=== PATIENT | female | born 1995 | race Caucasian/White ===

== ENCOUNTER 2020-03-31 16:31 | Emergency (ER) | payer OTHER, SELFPAY ==
[2020-03-31 16:39] VITALS: BP 149/79; PULSE 89; RESP 20; TEMP 36.8; O2SAT 100
--- NOTE | 2020-03-31 17:28 | ED.GENADULT ---
HPI - General Adult General Chief complaint: Dental/Oral Stated complaint: tooth pain/swelling Time Seen by Provider: 03/31/20 17:28 Source: patient and RN notes reviewed Mode of arrival: ambulatory Limitations: no limitations History of Present Illness HPI narrative: 25-year-old female presents with complaints of dental pain for the past 3 days. No treatment. Kala says she has had dental problems for over 3 months in which one tooth chipped 2 months ago and LT lower molar is impacted. Her dental appointments has been canceled several times due to COVID-19 per Kala. Denies any drainage. No fever. No jaw swelling. No neck swelling. No limitation with speaking or swallowing. Has history of dental caries. No dental trauma. No oral lesions. Exacerbating factors consist of chewing on LT side, eating and drinking hot and cold items. Relieving factors not eating on LT side and avoiding hot and cold items. No dentures or bridges. Tolerating liquids well. The patient reports she have not been diagnosed with COVID-19. The patient reports she is not waiting for the results of a COVID-19 lab test. The patient reports she do not have fever, chills, weakness, fatigue, myalgia, or facial swelling. The patient reports she do not have a new or worsening cough or shortness of breath. Denies chest pain. The patient reports she do not have any rhinorrhea, congestion, sore throat, nausea, vomiting, abdominal pain, and diarrhea. Tolerating po intake well. Denies recent traveling. Denies concerns for COVID-19 or exposures been home with limited outdoor exposure except for essential household needs, work, and return home. At this time, patient is not suspected of having COVID-19. Some parts of this dictation were generated by voice recognition software and may contain typographical and/or grammatical inaccuracies. Related Data Allergies Allergy/AdvReac Type Severity Reaction Status Date / Time No Known Allergies Allergy Verified 03/31/20 16:49 Review of Systems Review of Systems: Narrative: CONSTITUTIONAL: Denies fever, chills, sweats. EYES: Denies visual changes, redness, discharge. ENT: Denies rhinorrhea, congestion, sore throat, otalgia. Complains of LT diffused upper and lower dental pain. CARDIOVASCULAR: Denies chest pain, palpitations, edema. RESPIRATORY: Denies dyspnea, wheezing, cough. GASTROINTESTINAL: Denies abdominal pain, nausea, vomiting, diarrhea. GENITOURINARY: Denies dysuria, hematuria, abnormal discharge. SKIN: Denies rash or itching. MUSCULOSKELETAL: Denies acute back pain, joint pain, or myalgia. NEUROLOGIC: Denies numbness or focal weakness. PSYCHIATRIC: Denies anxiety or depression. All systems reviewed & are unremarkable except as noted in HPI and below. [facility] Past Medical History Medical History (Updated 04/01/20 @ 00:00 by Socorro Huff) No significant past medical history Non-involution of uterus Surgical History Surgical History (Updated 03/31/20 @ 19:14 by JANAK Mckinnon) No significant past surgical history Family History Family History (Updated 03/31/20 @ 19:15 by JANAK Mckinnon) Father Hypertension Bipolar disorder Mother Alive and well Social History Social History (Updated 03/31/20 @ 19:16 by JANAK Mckinnon) Smoking packs per day: 0.45 Smoking cigarettes per day: 9.0 Years smoked: 5 Smoking pack-years: 2.25 Smoking status: Current every day smoker Tobacco type: cigarettes Second hand tobacco smoke exposure: Yes Alcohol intake: current Substance use: never Living arrangements: with family Occupation/Education: occupation Gender identity (if verbalized by the patient): Female Sexual Orientation (if Verbalized by the Patient): Straight or Heterosexual Comments At time of signature, agree with nurse past medical, surgical, social, and family history. There is no relevant family history pertinent to the presenting
== END 2020-03-31 17:45 | disposition home or self-care (01) ==
PROVIDERS: Emergency Provider Nurse Practitioner Family
DX: K02.9 Dental caries, unspecified (principal); K04.7 Periapical abscess without sinus; F17.210 Nicotine dependence, cigarettes, uncomplicated
CPT/HCPCS: 99213; G0463

== ENCOUNTER 2021-06-16 13:55 | Emergency (ER) | payer OTHER, SELFPAY ==
[2021-06-16 14:01] VITALS: BP 152/86; PULSE 96; RESP 20; TEMP 36.8; O2SAT 100
--- NOTE | 2021-06-16 14:56 | ED.URI ---
HPI - URI/Sore Throat General Chief Complaint: Upper Respiratory Infection Stated Complaint: Cold Symptoms Time Seen by Provider: 06/16/21 14:38 Source: patient and RN notes reviewed Mode of arrival: ambulatory Limitations: no limitations History of Present Illness HPI Narrative: Patient presents today with a 2-day history of sore throat that has mostly resolved, occasional cough, and nasal congestion and pressure. She reports a fever of 100 yesterday and one episode of vomiting each of the last 2 days. Denies shortness of breath, ear pain, any current nausea, diarrhea. Denies loss of taste or smell. She has not been vaccinated against COVID-19. She has been taking ibuprofen with mild relief. MD elicited complaint: sore throat and nasal congestion Related Data Home Medications Medication Instructions Recorded Confirmed No Home Medications 06/16/21 06/16/21 Allergies Allergy/AdvReac Type Severity Reaction Status Date / Time No Known Allergies Allergy Verified 06/16/21 14:16 Review of Systems Review of Systems: CONSTITUTIONAL: Denies body aches, chills, or sweats.+ Fever EYES: Denies visual changes, redness, or discharge. ENT: Denies rhinorrhea, or otalgia.+ Sore throat, congestion CARDIOVASCULAR: Denies chest pain, palpitations, or edema. RESPIRATORY: Denies dyspnea.+ Cough GASTROINTESTINAL: Denies abdominal pain, nausea, or diarrhea.+ Vomiting GENITOURINARY: Denies dysuria or hematuria. SKIN: Denies rash, itching, or wounds. MUSCULOSKELETAL: Denies back pain, joint pain, or myalgia. NEUROLOGIC: Denies headache, numbness, tingling, or weakness. PSYCH: Denies depression or anxiety. [facility] Past Medical History Medical History No significant past medical history Non-involution of uterus Surgical History Surgical History No significant past surgical history Family History Family History Father Hypertension Bipolar disorder Mother Alive and well Social History Social History Smoking packs per day: 0.45 Smoking cigarettes per day: 9.0 Years smoked: 5 Smoking pack-years: 2.25 Smoking status: Current every day smoker Tobacco type: cigarettes Second hand tobacco smoke exposure: Yes Alcohol intake: current Substance use: never Gender identity (if verbalized by the patient): Female Sexual Orientation (if Verbalized by the Patient): Straight or Heterosexual Comments At time of signature, I have reviewed and agree with nursing past medical, surgical, social and family history unless otherwise noted. Please see nursing chart for further information. There is no relevant family history pertinent to the presenting complaint Exam Narrative: GENERAL: Well-appearing, well-nourished, and in no acute distress. HEAD: Normocephalic, atraumatic. EYES: EOMI. No redness or drainage. Conjunctivae normal. ENT: Mucous membranes pink and moist. Nares mildly congested. No rhinorrhea. TMs normal bilaterally. Throat mildly erythematous without edema or exudate. Uvula midline. NECK: Normal AROM. Supple. No lymphadenopathy. CHEST: No respiratory distress. Clear to auscultation. HEART: Regular rate and rhythm. No murmur appreciated. Normal peripheral pulses. EXTREMITIES: Normal range of motion. No edema. SKIN: Warm, dry, no rash. Capillary refill normal. Normal skin turgor. NEURO: No focal deficits. Alert and oriented x3. Gait steady. PSYCH: Normal affect. No signs of depression or anxiety. Course Course Emergency Course: Patient has declined an order for drive-through COVID-19 testing. Vital Signs Vital signs: Vital Signs Temperature 98.3 F 06/16/21 14:01 Pulse Rate 96 06/16/21 14:01 Respiratory Rate 20 06/16/21 14:01 Blood Pressure 15
== END 2021-06-16 15:05 | disposition home or self-care (01) ==
PROVIDERS: Emergency Provider Nurse Practitioner
DX: J06.9 Acute upper respiratory infection, unspecified (principal); F17.210 Nicotine dependence, cigarettes, uncomplicated
CPT/HCPCS: 87081; 87880; 99213; G0463

== ENCOUNTER 2022-10-14 14:19 | Emergency (ER) | payer OTHER, SELFPAY ==
[2022-10-14 14:24] VITALS: BP 145/85; PULSE 88; RESP 20; TEMP 36.8; O2SAT 100
--- NOTE | 2022-10-14 14:29 | ED.EYEPROB ---
HPI - Eye Problem General Chief complaint: Eye Problems Stated complaint: Eye Problem Time Seen by Provider: 10/14/22 14:30 Source: patient and RN notes reviewed Mode of arrival: ambulatory Limitations: no limitations History of Present Illness HPI Narrative: 27-year-old or for female presents with concern for possible stye to her right eye. She reports she had a stye on the lower lid that went away with warm compresses. She reports she now developed a worse stye on her right upper lid. She denies vision changes. Reports yellow drainage from the eye. MD chief complaint: eye redness Related Data Allergies Allergy/AdvReac Type Severity Reaction Status Date / Time No Known Allergies Allergy Verified 10/14/22 14:36 Review of Systems Review of Systems: CONSTITUTIONAL: Denies malaise, chills, sweats, or fever. EYES: Denies visual changes. Reports irritation and swelling to the right upper lid with yellow drainage ENT: Denies rhinorrhea, congestion, sinus pain, otalgia or sore throat. SKIN: Denies rash or itching. NEUROLOGIC: Denies numbness, weakness, or headache. PSYCHIATRIC: Denies anxiety or depression. All systems reviewed & are unremarkable except as noted in HPI and below [facility] Past Medical History Medical History No significant past medical history Non-involution of uterus Surgical History Surgical History No significant past surgical history Family History Family History Father Hypertension Bipolar disorder Mother Alive and well Social History Social History Smoking packs per day: 0.45 Smoking cigarettes per day: 9.0 Years smoked: 5 Smoking pack-years: 2.25 Smoking status: Current every day smoker Tobacco type: cigarettes Second hand tobacco smoke exposure: Yes Alcohol intake: current Substance use: never Living arrangements: with family Occupation/Education: occupation Gender identity (if verbalized by the patient): Female Sexual Orientation (if Verbalized by the Patient): Straight or Heterosexual Comments At time of signature, agree with nursing past medical, surgical, social and family history. There is no relevant family history pertinent to the presenting complaint Exam Narrative: GENERAL: Well-appearing, well-nourished, and in no acute distress. HEAD: Normocephalic, atraumatic. EYES: PERRLA and EOMI. No nystagmus. Bilateral Schooler and conjunctivae clear. Left Upper and lower eyelid unremarkable, no periorbital edema noted. Healing hordeolum noted to the right lower lid, hordeolum noted to the right upper lid with small amount of yellow drainage ENT: Nares clear. Mucous membranes moist. NECK: Supple. CHEST: No respiratory distress. Speaks in full sentences. HEART: Regular rate and rhythm. SKIN: Warm, dry, no visible rash. NEURO: Alert and oriented x3. PSYCH: Normal mood and affect Course Course Emergency Course: Patient is aware of diagnosis, understands and agrees to treatment plan. Anticipatory guidance given. Patient agrees to follow-up as directed and is aware of reasons to seek care at the emergency department. Portions of this record may have been created with voice recognition software Level of Care: Express Care Visit Vital Signs Vital signs: Reviewed. MDM - Eye Problem MDM Narrative Medical decision making narrative: Consideration of the following conditions may be warranted for the presenting problem, they are not final diagnoses: Bacterial conjunctivitis, allergic conjunctivitis, viral conjunctivitis, foreign body, blepharitis, chalazion, hordeolum, corneal abrasion, preseptal cellulitis, orbital cellulitis. No evidence of proptosis, ophthalmoplegia, vision loss, pain with eye movement. Exam findings
== END 2022-10-14 14:40 | disposition home or self-care (01) ==
PROVIDERS: Emergency Provider Nurse Practitioner; PCP Hospitalist
DX: H00.011 Hordeolum externum right upper eyelid (principal); F17.210 Nicotine dependence, cigarettes, uncomplicated
CPT/HCPCS: 99213; G0463

== ENCOUNTER 2024-05-17 11:44 | Emergency (ER) | payer SELFPAY ==
[2024-05-17 11:46] VITALS: BP 157/90; PULSE 82; RESP 15; TEMP 36.8; O2SAT 99
[2024-05-17 13:05] VITALS: BP 139/89; PULSE 73; RESP 20; O2SAT 97
[2024-05-17 13:25] LABS: Basophils Absolute Auto 0.1 K/mm3 (0.0-0.1); Basophils Percent Auto 0.4 % (0.2-1.2); Eosinophils Absolute Auto 0.1 K/mm3 (0-0.3); Eosinophils Percent Auto 0.7 % (0-4.4); Hematocrit 48.2 % (37.0-47.0); Hemoglobin 16.1 g/dL (12.0-15.0); Immature Granulocyte Percent A 1.5 % (0-0.5); Lymphocytes Absolute Auto 3.08 K/mm3 (0.9-3.2); Lymphocytes Percent Auto 22.5 % (18.3-44.2); Mean Corpuscular HGB Conc 33.4 g/dl (32-36); Mean Corpuscular Hemoglobin 31.5 pg (26-34); Mean Corpuscular Volume 94.3 fl (80-100); Mean Platelet Volume 9.4 fl (7.4-10.4); Monocytes Absolute Auto 0.9 K/mm3 (0.1-0.6); Monocytes Percent Auto 6.5 % (2.6-8.5); Neutrophils Absolute Auto 9.4 K/mm3 (1.3-6.7); Neutrophils Percent Auto 68.4 % (45.5-73.1); Platelet Count Result 283 k/mm3 (150-375); Red Blood Count 5.11 M/mm3 (4.2-5.4); Red Cell Distribution Width 14.4 % (11.5-14.5); White Blood Count 13.7 K/mm3 (4.5-10.0)
[2024-05-17 13:36] LABS: Alanine Aminotransferase 20 U/L (6-35); Albumin Level 4.4 g/dL (3.5-5.1); Alkaline Phosphatase 134 U/L (38-126); Anion Gap 10 mmol/L (4-12); Aspartate Amino Transferase 24 U/L (14-36); Bilirubin,Total 0.4 mg/dL (0.2-1.3); Blood Urea Nitrogen 4 mg/dL (7-17); Calcium 9.2 mg/dL (8.4-10.2); Carbon Dioxide 26 mmol/L (22-30); Chloride 104 mmol/L (98-107); Estimated CRCL calculation 134 ml/min; Estimated Glomerular Filt Rate > 60; Glucose 98 mg/dL (65-110); Magnesium 1.9 mg/dL (1.6-2.3); Potassium 3.2 mmol/L (3.4-5.0); Sodium 140 mmol/L (137-145)
[2024-05-17 14:13] VITALS: BP 130/77; PULSE 77; RESP 12; O2SAT 98
--- NOTE | 2024-05-17 14:31 | ED.GENADULT ---
HPI - General Adult General Chief complaint: Recheck/Abnormal Lab/Rx Stated complaint: High Blood pressure Time Seen by Provider: 05/17/24 12:28 History of Present Illness HPI narrative: Patient is a 29-year-old female who presents ER with concerns for elevated blood pressure. She has been checking her blood pressure regularly at home and typically runs in the 130s to 140 systolic. Today she had an episode of dizziness when she checked her blood pressure was in the 200 systolic. Patient reports she has had mild congestion over last week. No spinning dizziness. She did feel flushed when this began. No chest pain or chest pressure. No racing heart. No nausea or vomiting. She does not have a primary care physician. She has not been taking any new medications. Related Data Allergies Allergy/AdvReac Type Severity Reaction Status Date / Time No Known Allergies Allergy Verified 05/17/24 11:51 Review of Systems Review of Systems: All systems reviewed & are unremarkable except as noted in HPI and below Constitutional: Constitutional: Reports no additional constitutional complaints ENT: Reports system reviewed and no additional complaints, except as documented Respiratory: Respiratory: Reports no additional respiratory complaints Gastrointestinal: Gastrointestinal: Reports no additional gastrointestinal complaints [facility] Past Medical History Medical History No significant past medical history Non-involution of uterus Surgical History Surgical History No significant past surgical history Family History Family History Father Hypertension Bipolar disorder Mother Alive and well Social History Social History Smoking packs per day: 0.45 Smoking cigarettes per day: 9.0 Years smoked: 5 Smoking pack-years: 2.25 Smoking status: Current every day smoker Tobacco type: cigarettes Second hand tobacco smoke exposure: Yes Alcohol intake: current Substance use: never Living arrangements: with family Occupation/Education: occupation Gender identity (if verbalized by the patient): Female Sexual Orientation (if Verbalized by the Patient): Straight or Heterosexual Exam Narrative: GENERAL: Well-appearing, well-nourished, and in no acute distress. HEAD: Normocephalic, atraumatic. ENT: Mucous membranes moist. TMs normal bilaterally. CHEST: Clear to auscultation. No respiratory distress. HEART: Regular rate and rhythm. Normal peripheral pulses. ABDOMEN: Soft, nontender, nondistended. EXTREMITIES: Normal range of motion. No edema. SKIN: Warm, dry, no rash. NEURO: Alert and oriented x3. PSYCH: Normal mood and affect. Course Course Emergency Course: Nonspecific leukocytosis of 13.7. Hemoglobin slightly elevated at 16.1. No comparison. CMP with mild hypokalemia. Blood pressure currently 129/71. Will not prescribe any antihypertensives at this time. Will give PCP follow-up. Vital Signs Vital signs: Vital Signs Temperature 98.2 F 05/17/24 11:46 Pulse Rate 82 05/17/24 11:46 Respiratory Rate 15 05/17/24 11:46 Blood Pressure 157/90 H 05/17/24 11:46 Pulse Oximetry 99 05/17/24 11:46 Oxygen Delivery Room Air 05/17/24 11:46 Temperature 98.2 F 05/17/24 11:46 Pulse Rate 77 05/17/24 14:13 Respiratory Rate 12 05/17/24 14:13 Blood Pressure 130/77 05/17/24 14:13 Pulse Oximetry 98 05/17/24 14:13 Oxygen Delivery Room Air 05/17/24 11:46 Medical Decision Making Vital Signs Vital Signs: Vital Signs Temperature 98.2 F 05/17/24 11:46 Pulse Rate 82 05/17/24 11:46 Respiratory Rate 15 05/17/24 11:46 Blood Pressure 157/90 H 05/17/24 11:46 Pulse Oximetry 99 05/17/24 11:46 Oxygen Delivery Room Air
[2024-05-17 14:49] VITALS: BP 118/92; PULSE 68; RESP 20; TEMP 36.6; O2SAT 98
== END 2024-05-17 14:50 | disposition home or self-care (01) ==
PROVIDERS: Emergency Provider Emergency Medicine
DX: R03.0 Elevated blood-pressure reading, without diagnosis of hypertension (principal); F17.210 Nicotine dependence, cigarettes, uncomplicated
CPT/HCPCS: 36415; 80053; 83735; 85025; 99283